=== PATIENT | male | born 2000 | race Caucasian/White ===

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

== ENCOUNTER 2018-09-29 07:10 | Emergency (ER) | payer OTHER ==
[~2018-09-29] VITALS: Wt 68.0 kg
[~2018-09-29 07:10] MED LIST changes: +IBUPROFEN600 MG PO; +LOTRIMIN AF12 GM T
[2018-09-29 07:11] VITALS: BP 130/62
[2018-09-29 07:36] LABS: BILIRUBIN NEGATIVE (NEGATIVE); BLOOD NEGATIVE (NEGATIVE); CLARITY CLEAR (CLEAR); COLOR YELLOW (YELLOW); GLUCOSE NEGATIVE (NEGATIVE); KETONE NEGATIVE (NEGATIVE); LEUKO ESTERASE NEGATIVE (NEGATIVE); NITRITE NEGATIVE (NEGATIVE); SPECIFIC GRAVITY <= 1.005 (1.005-1.030); UROBILINOGEN 0.2 E.U./dl (0.2-1.0)
[2018-09-29 07:38] LABS: BASO # 0.1 10*3/uL (0.0-0.1); BASO % 0.9 % (0.0-1.0); EOS # 0.3 10*3/uL (0.0-0.4); EOS % 3.6 % (1.0-4.0); HEMATOCRIT 45.9 % (42.0-52.0); HEMOGLOBIN 15.1 g/dl (14.0-18.0); LYMPH # 2.5 10*3/uL (1.3-4.4); LYMPH % 30.5 % (27.0-41.0); MEAN CORPUSCULAR HGB 29.6 pg (27.0-31.0); MEAN CORPUSCULAR HGB CONC 32.9 g/dl (33.0-37.0); MEAN PLATELET VOLUME 9.4 fl (9.6-12.3); MONO # 0.6 10*3/uL (0.1-1.0); MONO % 7.4 % (3.0-9.0); NEUT # 4.7 10*3/uL (2.3-7.9); NEUT % 57.2 % (47.0-73.0); PLATELET COUNT AUTOMATED 242 10*3/uL (130-400); RED CELL DISTRI WIDTH 13.2 % (0-14.5); WHITE BLOOD COUNT 8.1 10*3/uL (4.8-10.8)
[2018-09-29 07:49] LABS: RBC 0-2 rbc/hpf (0-2); WBC 0-2 wbc/hpf (0-5)
[2018-09-29 08:01] LABS: ALBUMIN 4.4 gm/dl (3.1-4.5); ALKALINE PHOSPHATASE 79 U/L (45-117); BUN 19 mg/dl (7-24); CHLORIDE 104 mmol/L (98-107); CREATININE 1.02 mg/dL (0.70-1.30); POTASSIUM 3.7 mmol/L (3.5-5.1); SGOT/AST 13 IU/L (3-35); SGPT/ALT 20 U/L (12-78); SODIUM 138 mmol/L (136-145); TOTAL PROTEIN 7.7 gm/dL (6.4-8.2)
== END 2018-09-29 08:16 | disposition home or self-care (01) ==
LOC: ED 07:10
PROVIDERS: Emergency Medicine
DX: Z00.00 Encounter for general adult medical examination without abnormal findings (principal); Z11.3 Encounter for screening for infections with a predominantly sexual mode of transmission; Z88.8 Allergy status to other drugs, medicaments and biological substances

== ENCOUNTER 2019-01-14 08:31 | Emergency (ER) | payer OTHER ==
[~2019-01-14] VITALS: Wt 69.9 kg
[2019-01-14 08:32] VITALS: BP 118/63
== END 2019-01-14 10:15 | disposition home or self-care (01) ==
LOC: ED 08:31
DX: S80.211A Abrasion, right knee, initial encounter (principal); S80.811A Abrasion, right lower leg, initial encounter; S80.812A Abrasion, left lower leg, initial encounter; S40.811A Abrasion of right upper arm, initial encounter; T14.8XXA Other injury of unspecified body region, initial encounter; F17.200 Nicotine dependence, unspecified, uncomplicated; Z88.8 Allergy status to other drugs, medicaments and biological substances; W22.09XA Striking against other stationary object, initial encounter; Y93.02 Activity, running; Y92.830 Public park as the place of occurrence of the external cause; Y99.8 Other external cause status

== ENCOUNTER 2019-01-25 22:58 | Emergency (ER) | payer OTHER ==
[~2019-01-25] VITALS: Ht 175.2 cm; Wt 69.9 kg
[2019-01-25 22:59] VITALS: BP 128/77
[2019-01-25] MEDS ORDERED: KENALOG 0.1%80 GM T (23:09)
== END 2019-01-25 23:14 | disposition home or self-care (01) ==
LOC: ED 22:58
DX: L25.9 Unspecified contact dermatitis, unspecified cause (principal); Z88.8 Allergy status to other drugs, medicaments and biological substances

== ENCOUNTER 2019-09-02 22:09 | Emergency (ER) | payer OTHER ==
[~2019-09-02] VITALS: Ht 175.2 cm; Wt 73.9 kg
[~2019-09-02 22:09] MED LIST changes: +KENALOG 0.1%80 GM T
[2019-09-02 22:15] VITALS: BP 125/69
== END 2019-09-02 23:45 | disposition home or self-care (01) ==
LOC: ED 22:09
DX: S60.221A Contusion of right hand, initial encounter (principal); K21.9 Gastro-esophageal reflux disease without esophagitis; J45.909 Unspecified asthma, uncomplicated; F17.200 Nicotine dependence, unspecified, uncomplicated; Z88.8 Allergy status to other drugs, medicaments and biological substances; Z79.899 Other long term (current) drug therapy; W22.8XXA Striking against or struck by other objects, initial encounter; Y93.89 Activity, other specified; Y92.89 Other specified places as the place of occurrence of the external cause; Y99.8 Other external cause status

== ENCOUNTER 2020-05-15 17:46 | Emergency (ER) | payer OTHER ==
[~2020-05-15] VITALS: Ht 177.8 cm; Wt 86.2 kg
[2020-05-15 17:58] VITALS: BP 128/66
== END 2020-05-15 19:34 | disposition home or self-care (01) ==
LOC: ED 17:46
DX: K04.7 Periapical abscess without sinus (principal); K21.9 Gastro-esophageal reflux disease without esophagitis; J45.909 Unspecified asthma, uncomplicated; F32.9 Major depressive disorder, single episode, unspecified

== ENCOUNTER 2021-02-15 15:18 | Emergency (ER) | payer OTHER ==
[2021-02-15 15:26] VITALS: BP 130/82
[2021-02-15] MEDS ORDERED: ALA-CORT28.4 GM T (16:10)
== END 2021-02-15 16:15 | disposition home or self-care (01) ==
LOC: ED 15:18
DX: L23.7 Allergic contact dermatitis due to plants, except food (principal); F90.9 Attention-deficit hyperactivity disorder, unspecified type; Z88.8 Allergy status to other drugs, medicaments and biological substances; Z79.899 Other long term (current) drug therapy; Z79.2 Long term (current) use of antibiotics

== ENCOUNTER 2021-07-10 06:35 | Emergency (ER) | payer OTHER ==
[~2021-07-10 06:35] MED LIST changes: +ALA-CORT28.4 GM T
== END 2021-07-10 07:40 | disposition left against medical advice (07) ==
LOC: ED 06:35
DX: Z53.21 Procedure and treatment not carried out due to patient leaving prior to being seen by health care provider (principal)

== ENCOUNTER 2021-07-11 13:02 | Emergency (ER) | payer OTHER ==
[~2021-07-11] VITALS: Wt 85.3 kg
[2021-07-11 13:32] VITALS: BP 130/80
== END 2021-07-11 15:08 | disposition left against medical advice (07) ==
LOC: ED 13:02
DX: J02.9 Acute pharyngitis, unspecified (principal); Z53.21 Procedure and treatment not carried out due to patient leaving prior to being seen by health care provider

== ENCOUNTER 2022-05-25 05:08 | Emergency (ER) | payer OTHER ==
[~2022-05-25] VITALS: Ht 177.8 cm; Wt 89.8 kg
[2022-05-25 05:16] VITALS: BP 125/63
[2022-05-25 06:08] LABS: BASO # 0.1 10*3/uL (0.0-0.1); BASO % 0.9 % (0.0-1.0); EOS # 0.4 10*3/uL (0.0-0.4); EOS % 4.2 % (1.0-4.0); HEMATOCRIT 44.2 % (42.0-52.0); LYMPH % 38.1 % (27.0-41.0); MEAN CELL VOLUME 86.7 fl (80.0-94.0); MEAN CORPUSCULAR HGB 29.6 pg (27.0-31.0); MEAN CORPUSCULAR HGB CONC 34.2 g/dl (33.0-37.0); MEAN PLATELET VOLUME 9.2 fl (9.6-12.3); MONO # 0.8 10*3/uL (0.1-1.0); MONO % 7.8 % (3.0-9.0); NEUT # 5.1 10*3/uL (2.3-7.9); NEUT % 48.8 % (47.0-73.0); PLATELET COUNT AUTOMATED 256 10*3/uL (130-400); WHITE BLOOD COUNT 10.4 10*3/uL (4.8-10.8)
[2022-05-25 06:18] LABS: ALKALINE PHOSPHATASE 70 U/L (45-117); BUN 16 mg/dl (7-24); CHLORIDE 110 mmol/L (98-107); CREATININE 0.83 mg/dL (0.70-1.30); POTASSIUM 3.8 mmol/L (3.5-5.1); SGOT/AST 16 IU/L (3-35); SGPT/ALT 31 U/L (12-78); SODIUM 141 mmol/L (136-145); TOTAL PROTEIN 6.9 gm/dL (6.4-8.2)
[2022-05-25 06:24] LABS: ACT PARTIAL THROMBO TIME 26.1 SECONDS (20.0-32.1)
[2022-05-25] MEDS ORDERED: PREDNISONE20 M1 PO (07:17)
[2022-05-25] MEDS ORDERED: RELAFEN500 M1 PO (07:18)
== END 2022-05-25 07:09 | disposition home or self-care (01) ==
LOC: ED 05:08
PROVIDERS: Family Medicine
DX: R09.1 Pleurisy (principal); Z20.822 Contact with and (suspected) exposure to COVID-19; F17.200 Nicotine dependence, unspecified, uncomplicated; Z88.1 Allergy status to other antibiotic agents

== ENCOUNTER 2022-11-22 18:09 | Emergency (ER) | payer OTHER ==
[~2022-11-22] VITALS: Ht 180.3 cm
[~2022-11-22 18:09] MED LIST changes: +PREDNISONE20 M1 PO; +RELAFEN500 M1 PO
[2022-11-22 18:18] VITALS: BP 134/83
[2022-11-22] MEDS ORDERED: Motrin,Rufen800 MG PO (19:49)
== END 2022-11-22 20:10 | disposition home or self-care (01) ==
LOC: ED 18:09
DX: M79.641 Pain in right hand (principal); K21.9 Gastro-esophageal reflux disease without esophagitis; J45.909 Unspecified asthma, uncomplicated; F32.A Depression, unspecified; Z88.8 Allergy status to other drugs, medicaments and biological substances

== ENCOUNTER 2023-12-30 23:33 | Emergency (ER) | payer OTHER ==
[~2023-12-30] VITALS: Wt 78.9 kg
[2023-12-30 23:41] VITALS: BP 126/78
[2023-12-30] MEDS ORDERED: Amoxicillin/Clavulanate Pota 875 MG TAB PO ONE (23:45)
[2023-12-30] MEDS ORDERED: AMOX-CLAV 875-1 EACH PO (23:46)
== END 2023-12-30 23:59 | disposition home or self-care (01) ==
LOC: ED 23:33
DX: K04.7 Periapical abscess without sinus (principal); K02.9 Dental caries, unspecified; K21.9 Gastro-esophageal reflux disease without esophagitis; J45.909 Unspecified asthma, uncomplicated; F32.A Depression, unspecified; F90.9 Attention-deficit hyperactivity disorder, unspecified type; Z88.8 Allergy status to other drugs, medicaments and biological substances

== ENCOUNTER 2024-07-27 07:45 | Emergency (ER) | payer OTHER ==
[~2024-07-27] VITALS: Ht 177.8 cm; Wt 81.6 kg
[~2024-07-27 07:45] MED LIST changes: +AMOX-CLAV 875-1 EACH PO
[2024-07-27 08:01] VITALS: BP 133/78
[2024-07-27] MEDS ORDERED: MELOXICAM15 MG PO (08:13)
[2024-07-27] MEDS ORDERED: Acetaminophen/Oxycodone 5 MG/325 MG TABLET PO ONE (08:15)
== END 2024-07-27 08:43 | disposition home or self-care (01) ==
LOC: ED 07:45
DX: G56.01 Carpal tunnel syndrome, right upper limb (principal); K21.9 Gastro-esophageal reflux disease without esophagitis; J45.909 Unspecified asthma, uncomplicated; F32.A Depression, unspecified; Z88.8 Allergy status to other drugs, medicaments and biological substances

== ENCOUNTER 2024-12-12 01:48 | Emergency (ER) | payer OTHER ==
[~2024-12-12] VITALS: Ht 177 cm; Wt 83.9 kg
[~2024-12-12 01:48] MED LIST changes: +MELOXICAM15 MG PO
[2024-12-12 01:58] VITALS: BP 134/64
[2024-12-12] MEDS ORDERED: SODIUM CHLORIDE 0.9% 1,000 ML IV ONE (02:05)
[2024-12-12] MEDS ORDERED: diphenhydrAMINE hydrochloride 50 MG/ML VIAL IV ONE (02:05)
[2024-12-12] MEDS ORDERED: Ketorolac Tromethamine 30 MG/ML VIAL IV ONE (02:05)
[2024-12-12] MEDS ORDERED: Ondansetron Hydrochloride 4 MG/2 ML VIAL IV ONE (02:05)
[2024-12-12] MEDS ORDERED: NAPROXEN250 MG PO (04:09)
[2024-12-12] MEDS ORDERED: METHOCARBAMOL500 M1 PO (04:09)
== END 2024-12-12 04:13 | disposition home or self-care (01) ==
LOC: ED 01:48
DX: S16.1XXA Strain of muscle, fascia and tendon at neck level, initial encounter (principal); R51.9 Headache, unspecified; J45.909 Unspecified asthma, uncomplicated; K21.9 Gastro-esophageal reflux disease without esophagitis; F32.A Depression, unspecified; Z88.1 Allergy status to other antibiotic agents; X58.XXXA Exposure to other specified factors, initial encounter; Y93.89 Activity, other specified; Y92.89 Other specified places as the place of occurrence of the external cause; Y99.8 Other external cause status

== ENCOUNTER → 2024-12-14 | Outpatient (CLI) | payer OTHER ==
[~2024-12-14] MED LIST changes: +METHOCARBAMOL500 M1 PO; +NAPROXEN250 MG PO
[2024-12-14 15:27] LABS: BASO # 0.1 10*3/uL (0.0-0.1); BASO % 0.8 % (0.0-1.0); EOS # 0.6 10*3/uL (0.0-0.4); EOS % 6.7 % (1.0-4.0); HEMATOCRIT 43.9 % (42.0-52.0); MEAN CELL VOLUME 87.6 fl (80.0-94.0); MEAN CORPUSCULAR HGB 29.7 pg (27.0-31.0); MEAN CORPUSCULAR HGB CONC 33.9 g/dl (33.0-37.0); MEAN PLATELET VOLUME 9.3 fl (9.6-12.3); MONO # 0.6 10*3/uL (0.1-1.0); MONO % 6.7 % (3.0-9.0); NEUT # 3.4 10*3/uL (2.3-7.9); NEUT % 39.7 % (47.0-73.0); PLATELET COUNT AUTOMATED 258 10*3/uL (130-400); RED BLOOD COUNT 5.01 10*6/uL (4.50-5.90); RED CELL DISTRI WIDTH 13.2 % (0-14.5); RETICULOCYTE % 1.15 % (0.50-2.50); WHITE BLOOD COUNT 8.6 10*3/uL (4.8-10.8)
[2024-12-14 15:32] LABS: BILIRUBIN Negative (Negative); BLOOD Negative (Negative); CLARITY Clear (Clear); COLOR Yellow (Yellow); GLUCOSE Negative (Negative); KETONE Trace (Negative); LEUKO ESTERASE Negative (Negative); NITRITE Negative (Negative); PH 5.5 (4.5-8.0); SPECIFIC GRAVITY 1.025 (1.001-1.030)
[2024-12-14 15:55] LABS: ALKALINE PHOSPHATASE 77 U/L (46-116); BUN 11 mg/dl (9-23); CHLORIDE 106 mmol/L (98-107); CHOLESTEROL 221 mg/dL (<200); GAMMA GLUTAMYL TRANSPEPTIDASE 25 U/L (0-73); LDL CHOLESTEROL 147 mg/dL (9-159); POTASSIUM 3.9 mmol/L (3.4-5.1); SGPT/ALT 32 U/L (5-49); TOTAL PROTEIN 7.5 gm/dL (6.0-8.0); TRIGLYCERIDES 186 mg/dl (<150); URIC ACID 5.3 mg/dL (3.7-9.2)
[2024-12-14 16:02] LABS: VITAMIN D, 25-HYDROXY 27.8 ng/mL (30-100)
[2024-12-14 16:26] LABS: MUCOUS 2+
[2024-12-15 15:07] LABS: ANTI-DSDNA ANTIBODIES 1 IU/mL (0-9)
== END | disposition home or self-care (01) ==
LOC: LAB 14:39
PROVIDERS: ATTEND Family Medicine
DX: M48.07 Spinal stenosis, lumbosacral region (principal); M25.551 Pain in right hip; M54.50 Low back pain, unspecified; R79.89 Other specified abnormal findings of blood chemistry; R53.83 Other fatigue; R74.8 Abnormal levels of other serum enzymes; E55.9 Vitamin D deficiency, unspecified

== ENCOUNTER → 2025-01-09 | Outpatient (CLI) | payer OTHER | END | disposition home or self-care (01) | LOC: RAD 12:57 | PROVIDERS: ATTEND Family Medicine | DX: M50.30 Other cervical disc degeneration, unspecified cervical region (principal) ==